=== PATIENT | female | born 1980 | race Caucasian/White ===

== ENCOUNTER 2022-07-31 02:23 | Inpatient (IN) | payer MEDICARE, MEDICAID, SELFPAY ==
[2022-07-31 02:48] VITALS: BP 153/82; PULSE 90; RESP 18; TEMP 36.7; O2SAT 95
--- NOTE | 2022-07-31 05:51 | PC.ADMIT ---
Pt is a 42 year old female admitted to the unit after referral from [facility] and transported from [facility] [place] [facility] [place]. Pt arrived on unit at 0230. Pt signed a CV. Pt current medical issues are HTN, asthma, GERD and is currently c/o BL pedal pain. Per ER records in [place], pt has possible low grade frostbite as well as possible microscopic glass in her feet. Pt has callouses on feet. Pt has an accompanying CD of pedal xrays in chart. Pt was brought in to [place] ER by police after being found in community. [facility] staff called crisis concerned as she was presenting as paranoid that others were stealing from her and wishing her harm. Pt very perseverative about foot pain. Pt has recent PTSD lost cousin by suicide in 2014 and her father committed suicide in 04/2022 and was found by pt. Pt reports using ETOH and Cocaine, utox + for cocaine. Pt presented as extremely labile and was unwilling to participate in admission process, wanting to go to sleep. No legals signed. Pt placed on 5 min checks upon arrival, 15 min checks after doctor review. Orders obtained by Dr. Felix. Pt reports feel safe in the hospital.
[2022-07-31 08:30] VITALS: BP 149/98; PULSE 96; RESP 18; TEMP 37; O2SAT 96
[2022-07-31] MEDS: LORazepam 1 MG TABLET 3 MG PO (08:49)
[2022-07-31] MEDS: Gabapentin 400 MG CAPSULE 800 MG PO ×3 (08:50→20:45)
[2022-07-31] MEDS: lisinopriL 20 MG TABLET PO (08:50)
[2022-07-31] MEDS: ARIPiprazole 2 MG TABLET PO (08:51)
[2022-07-31] MEDS: Nicotine 21 MG PATCH.TD24 TRANSDERMA (08:52)
[2022-07-31] MEDS: Nicotine Polacrilex 2 MG GUM 4 MG BUCCAL ×2 (09:09→18:40)
[2022-07-31 10:00] VITALS: RESP 18
[2022-07-31 11:10] VITALS: RESP 18
[2022-07-31 12:13] VITALS: BP 147/86; PULSE 97; RESP 18; TEMP 36.7; O2SAT 97
--- NOTE | 2022-07-31 12:17 | PC.NURSE ---
This morning at 0830 I assessed pt for s/s withdrawal. On entering the room she was noted to exhibit agitation, unable to sit still, moving lower extremities while vs were assessed. She reported severe anxiety and mild 3/10 headache. She appeared sensitive to light: squinting when asked to open her eyes. She was observed scratching at her skin and reported she is very itchy. She was disoriented to day/ date/ time believing it was 07/28/22. The tremor in her upper extremties was pronounced. She was hypertensive and tachycardic. CIWA score 20. Dr Felix and Juanita Armendariz infomred. Ativan 3mg given po per orders with effect.
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
[2022-07-31] MEDS: traMADoL HCL 50 MG TABLET 25 MG PO (15:45)
[2022-07-31 19:30] VITALS: BP 144/86; PULSE 100; RESP 16; TEMP 36.9; O2SAT 95
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
[2022-07-31] MEDS: cloNIDine HCL 0.2 MG TABLET PO (20:44)
[2022-07-31] MEDS: LORazepam 1 MG TABLET 2 MG PO (20:44)
[2022-07-31] MEDS: QUEtiapine Fumarate 100 MG TABLET PO (20:44)
[2022-07-31] MEDS: Atorvastatin Calcium 20 MG TABLET PO (20:45)
--- NOTE | 2022-08-01 00:41 | PC.NURSE ---
Pt signed a 3 day notice on 07/31/22, up on 08/05/2022.
[2022-08-01] MEDS: LORazepam 1 MG TABLET PO ×2 (00:53→14:23)
--- NOTE | 2022-08-01 03:43 | PC.NURSE ---
safety checks- orders for [address] by psychiatrist yesterday morning but has remained on 5 minute checks since that time. tonight is restless with disrupted sleep pattern, exhibiting sedation. when OOB is difficult to understand what she is saying, has been excessively eating and is spilling fluids on herself and floor. is oriented to person and is aware she is in the hospital.
[2022-08-01] MEDS: Omeprazole 40 MG CAPSULE.DR PO (05:52)
[2022-08-01 08:20] VITALS: BP 179/118; PULSE 94
[2022-08-01] MEDS: lisinopriL 20 MG TABLET PO (08:30)
[2022-08-01] MEDS: hydroCHLOROthiazide 12.5 MG TABLET PO (08:30)
[2022-08-01] MEDS: Gabapentin 400 MG CAPSULE 800 MG PO (08:30)
[2022-08-01] MEDS: ARIPiprazole 2 MG TABLET PO (08:30)
[2022-08-01] MEDS: lamoTRIgine 25 MG TABLET PO (08:30)
[2022-08-01] MEDS: Nicotine 21 MG PATCH.TD24 TRANSDERMA (08:31)
[2022-08-01] MEDS: LORazepam 1 MG TABLET 2 MG PO ×2 (08:40→18:49)
[2022-08-01] MEDS: traMADoL HCL 50 MG TABLET 25 MG PO ×2 (08:42→16:39)
[2022-08-01] MEDS: Nicotine Polacrilex 2 MG GUM 4 MG BUCCAL ×3 (08:50→17:07)
[2022-08-01 08:58] LABS: Estimated Average Glucose 100 mg/dL; Hemoglobin A1c % 5.1 %
[2022-08-01 09:06] LABS: Alanine Aminotransferase 24 U/L (0-31); Albumin Level 3.9 g/dL (3.5-5.0); Alkaline Phosphatase 98 U/L (39-117); Anion Gap 13 (12-20); Aspartate Amino Transferase 22 U/L (5-31); Bilirubin Direct < 0.2 mg/dL (0.0-0.5); Bilirubin Total 0.3 mg/dL (0.0-1.0); Blood Urea Nitrogen 14 mg/dL (9-16); Calcium 9.1 mg/dL (8.4-10.2); Carbon Dioxide 22 mmol/L (22-29); Chloride 110 mmol/L (96-108); Cholesterol 134 mg/dL; Estimated Glomerular Filt Rate > 60; Glucose Fasting 95 mg/dL (60-99); HDL Cholesterol 44 mg/dL; LDL Cholesterol Calculated 61 mg/dl; Potassium 4.4 mmol/L (3.3-5.1); Sodium 141 mmol/L (135-145); Total Protein 6.3 g/dL (6.5-8.0); Triglycerides 145 mg/dL
--- NOTE | 2022-08-01 09:08 | PC.NURSE ---
At 815 am pt was observed confused in the ladd looking for a bathroom. Her verbalizations were difficult to understand but she appeared confused. She was assisted back to her bathroom. After urinating and having a bm VS assessed 179/118 94. CIWA assessed: 16 - tremor, sweating, wincing at light, headache, Dr Felix informed and ativan 2mg given.
[2022-08-01 09:21] LABS: Thyroid Stimulating Hormone 0.91 uIU/mL (0.32-4.0)
[2022-08-01 09:34] LABS: Folate 9.3 ng/mL (> or = 4.0); Vitamin B12 215 pg/mL (200-900)
[2022-08-01 09:45] VITALS: BP 155/89; PULSE 96
[2022-08-01 11:10] VITALS: BP 177/103; PULSE 100; RESP 18; O2SAT 98
[2022-08-01] MEDS: Mineral Oil/Petrolatum,White 106 GM Tube 1 APPL TOPICAL (11:34)
[2022-08-01] MEDS: Fluticasone/Vilanterol 200/25 BLST.W.DEV 1 PUFF INHALE (11:34)
--- NOTE | 2022-08-01 12:57 | PC.NURSE ---
at 1109am BP 177/103 HR [address] Felix informed. No further orders given.
--- NOTE | 2022-08-01 13:46 | P.PNPSI_ITS ---
Subjective Subjective Date of Service: 08/01/22 Reason For Visit: Bipolar d/o, PTSD Interim History: pt up and about the unit this morning, appears a bit disoriented but much moire awake and engageable than yesterday. comes with MD to interview room. feels 3 mg ativan was too much yesterday, knocked her out. 2 mg seems to work better. states she has been drinking and using cocaine a lot. states she is not homeless but rather has an apartment. oriented to person, place, and time (other than saying it is the rather than the and that it is rather than Thursday). she is interested in getting back on her prior home medications regimen and discharging once her 3-day notice, which she submitted yesterday, matures. per staff, submitted 3-day notice yesterday. CIWA 20 yesterday, MAC, nausea, tremor. scoring 4, 7, 13, 8 at other points in the day and night yesterday. up a couple times overnight but appeared over-sedated to staff. slept much of the day yesterday. BP 179/118 this morning, agitated, tremulous, sweating. Mental Status Exam Mental Status Exam Narrative: adequately dressed, disheveled. cooperative, somewhat sluggish and sedated appearing. no PMA/PMR. speech nml rate, amount, loudness, latency. thoughts linear and logical, generally. affect blunted, hypo-intense, non-labile. mood down. denies SI. Diagnostics Vital Signs (24Hr): Vital Signs - 24 hr 07/31/22 19:30 08/01/22 08:20 08/01/22 09:45 Temperature 98.5 F Pulse Rate 100 94 96 Respiratory Rate 16 Blood Pressure 144/86 H 179/118 H 155/89 H Pulse Oximetry 95 Oxygen Delivery Method Room Air 08/01/22 11:10 Temperature Pulse Rate 100 Respiratory Rate 18 Blood Pressure 177/103 H Pulse Oximetry 98 Oxygen Delivery Method Room Air Labs 08/01/22 08:28 Labs: Laboratory Results - last 48 hr 08/01/22 08/01/22 08/01/22 08:28 08:28 08:28 Sodium 141 Potassium 4.4 Chloride 110 H Carbon Dioxide 22 Anion Gap 13 BUN 14 Creatinine 0.77 Estim Creat Clear Calc TNP Estimated GFR > 60 Fasting Glucose 95 Estimat Average Glucose 100 Hemoglobin A1c % 5.1 Calcium 9.1 Total Bilirubin 0.3 Direct Bilirubin < 0.2 AST 22 ALT 24 Alkaline Phosphatase 98 Total Protein 6.3 L Albumin 3.9 Triglycerides 145 Cholesterol 134 LDL Cholesterol, Calc 61 HDL Cholesterol 44 Vitamin B12 215 Folate 9.3 TSH 0.91 Medications Medications Current Medications Acetaminophen (Acetaminophen 325 Mg Tablet) 650 mg PO Q6H PRN PRN Reason: Headache/Pain Mild Scale (1-3) Al Hydroxide/Mg Hydroxide (Magnesium Hydrox/Alum Hydrox 30 Ml Oral.Susp) 30 ml PO Q6H PRN PRN Reason: Heartburn/Nausea Atorvastatin Calcium (Atorvastatin Calcium 20 Mg Tablet) 20 mg PO BEDTIME [facility] Last Admin: 07/31/22 20:45 Dose: 20 mg Clonidine HCl (Clonidine Hcl 0.2 Mg Tablet) 0.2 mg PO BEDTIME [facility] Last Admin: 07/31/22 20:44 Dose: 0.2 mg Fluticasone/Vilanterol (Fluticasone/Vilanterol 200/25 Blst.W.Dev) 1 puff INHALE RDAILY [facility] Last Admin: 08/01/22 11:34 Dose: 1 puff Gabapentin (Gabapentin 400 Mg Capsule) 400 mg PO TID [facility] Hydrochlorothiazide (Hydrochlorothiazide 12.5 Mg Tablet) 12.5 mg PO DAILY [facility] Last Admin: 08/01/22 08:30 Dose: 12.5 mg Hydroxyzine HCl (Hydroxyzine Hcl 25 Mg Tablet) 25 mg PO Q6H PRN PRN Reason: Anxiety Lisinopril (Lisinopril 20 Mg Tablet) 20 mg PO DAILY [facility]; Protocol Last Admin: 08/01/22 08:30 Dose: 20 mg Lorazepam (Lorazepam 1 Mg Tablet) 1 mg PO Q2H PRN PRN Reason: CIWA 8 - 11 Last Admin: 08/01/22 00:53 Dose: 1 mg Lorazepam (Lorazepam 1 Mg Tablet) 2 mg PO Q2H PRN PRN Reason: CIWA > 11 Magnesium Hydroxide (Milk Of Magnesia 30 Ml Oral.Susp) 30 ml PO DAILY PRN PRN Reason: Constipation Multi-Ingred Cream/Lotion/Oil/Oint (Mineral Oil/Petrolatum,White 106 Gm Tube) 1 appl TOPICAL BID [facility]; Protocol Last Admin: 08/01/22 11:34 Dose: 1 appl Nicotine (Nicotine 21 Mg Patch.Td24) 21 mg TRANSDERMA DAILY [facility] Last Admin: 08/01/22 08:31 Dose: 21 mg Nicotine Polacrilex (Nicotine Polacrilex 2 Mg Gum) 4 mg BUCCAL Q2H PRN PRN Reason: Nicotine Cravings Last Admin: 08/01/22 11:47 Dose: 4 mg Non-Formulary Medication (Ketorolac) 10 mg PO QID PRN PRN Reason: Pain Omeprazole (Omeprazole 40 Mg Capsule.Dr) 40 mg PO DAILY@0630 [facility] Last Admin: 08/01/22 05:52 Dose: 40 mg Quetiapine Fumarate (Quetiapine Fumarate 100 Mg Tablet) 100 mg PO BEDTIME [facility] Tramadol HCl (Tramadol Hcl 50 Mg Tablet) 25 mg PO Q4H PRN PRN Reason: severe pain Last Admin: 08/01/22 08:42 Dose: 25 mg Trazodone HCl (Trazodone Hcl 50 Mg Tablet) 50 mg PO BEDTIME PRN PRN Reason: Insomnia Allergies Allergies Allergy/AdvReac Type Severity Reaction Status Date / Time morphine Allergy Hives Verified 07/31/22 05:13 Assessment & Plan Assessment & Plan (1) Cocaine use disorder: Status: Acute Code(s): F14.10 - Cocaine abuse, uncomplicated (2) Alcohol use disorder: Status: Acute Code(s): F19.90 - Other psychoactive substance use, unspecified, uncomplicated (3) Depressive disorder, not elsewhere classified: Status: Acute Code(s): F32.89 - Other specified depressive episodes (4) PTSD (post-traumatic stress disorder): Status: Acute Code(s): F43.10 - Post-traumatic stress disorder, unspecified Plan 07/31: restart home medications. ativan per [facility] protocol for alcohol and/or benzo withdrawal. supportive care for cocaine withdrawal. 08/01: very hypertensive overnight and sedated/confused overnight. unclear if this is alcohol withdrawal delirium requiring more aggressive mgmt (ie, phenobarb protocol) versus restart of home meds to which she is not used, cocaine crash, and ativan. appearing slightly better today, BP responding to ativan. consulting medicine for opinion on phenobarb, will decrease some home med doses and continue ativan per CIWA protocol in the meantime. submitted 3- day notice, up next yvrose. Patient educated on: medication risk/benefits and substance abuse Reason for contiued inpatient stay Substantial Risk for: harm to self, inability to function and rapid decompensation Time Spent With Patient Time: Total time managing care of this patient today _25___ minutes.
[2022-08-01 14:15] VITALS: BP 144/89; PULSE 88; RESP 18; TEMP 36.7; O2SAT 96
[2022-08-01] MEDS: Gabapentin 400 MG CAPSULE PO ×2 (14:22→21:49)
[2022-08-01 18:00] VITALS: BP 186/96; PULSE 94; RESP 20; TEMP 36.8; O2SAT 98
[2022-08-01] MEDS: QUEtiapine Fumarate 50 MG TABLET PO (18:31)
[2022-08-01] MEDS: hydrOXYzine HCL 25 MG TABLET PO (21:49)
[2022-08-01] MEDS: Atorvastatin Calcium 20 MG TABLET PO (21:49)
[2022-08-01] MEDS: cloNIDine HCL 0.2 MG TABLET PO (21:49)
[2022-08-01] MEDS: QUEtiapine Fumarate 100 MG TABLET PO (21:49)
[2022-08-01 21:56] VITALS: BP 121/64; PULSE 94; TEMP 36.3; O2SAT 94
[2022-08-02 00:47] VITALS: BP 162/94; PULSE 103; O2SAT 97
[2022-08-02] MEDS: Nicotine Polacrilex 2 MG GUM 4 MG BUCCAL ×6 (00:52→21:37)
[2022-08-02] MEDS: LORazepam 1 MG TABLET PO ×5 (00:52→21:36)
--- NOTE | 2022-08-02 00:54 | PC.NURSE ---
CIWA-7. given ativan 1 mg as patient is diaphoretic, BP 162/94, 103. increase in agitation noted . HX of w/d seizures.
[2022-08-02] MEDS: Omeprazole 40 MG CAPSULE.DR PO (06:15)
[2022-08-02 06:20] VITALS: BP 156/98; PULSE 95
[2022-08-02] MEDS: Mineral Oil/Petrolatum,White 106 GM Tube 1 APPL TOPICAL ×2 (06:35→19:17)
[2022-08-02 09:00] VITALS: BP 158/102; PULSE 93; RESP 16; TEMP 36.7; O2SAT 97
[2022-08-02] MEDS: Gabapentin 400 MG CAPSULE PO ×3 (09:09→19:15)
[2022-08-02] MEDS: lisinopriL 20 MG TABLET PO (09:10)
[2022-08-02] MEDS: Fluticasone/Vilanterol 200/25 BLST.W.DEV 1 PUFF INHALE (09:44)
[2022-08-02] MEDS: Nicotine 21 MG PATCH.TD24 TRANSDERMA (10:51)
[2022-08-02] MEDS: traMADoL HCL 50 MG TABLET 25 MG PO (11:20)
[2022-08-02] MEDS: Magnesium Hydrox/Alum Hydrox 30 ML ORAL.SUSP PO (11:22)
--- NOTE | 2022-08-02 11:49 | P.PNPSI_ITS ---
Subjective Subjective Date of Service: 08/02/22 Reason For Visit: Bipolar d/o, PTSD Subjective Notes: Conditional Voluntary and 3 Day Interim History: The nursing staff reported the patient had been on CIWA protocol still scoring 12 at 19:00. Today she was angry and irritable demanding her Ativan and lotion for his frostbite. She was very lab violent angry. Apparently she was cooperative with the previous team. On interview no changes in her medications she stated that she is going to leave and Thursday. Mental Status Exam Mental Status Exam Patient Appearance: Appropriate Patient Orientation: Person, Place and Situation Level of Consciousness: Awake, Appropriate and Restless Patient Behavior: Aggressive, Restless and Belligerent Mood Description: Hostile and Expansive Affect Description: Labile Patient Cognition Impaired: No Ability to Follow Directions: Fair Speech Pattern: Perseverating Hallucinations: None Delusions: Not Present Thought Process: Racing and Distracted Thought Content: positive for [place], positive for Circumstantial and positive for Perseveration Judgement: Poor Diagnostics Vital Signs (24Hr): Vital Signs - 24 hr 08/01/22 18:00 08/01/22 14:15 08/01/22 21:56 Temperature 98.2 F 98.1 F 97.4 F Pulse Rate 94 88 94 Respiratory Rate 20 18 Blood Pressure 186/96 H 144/89 H 121/64 Pulse Oximetry 98 96 94 Oxygen Delivery Method Room Air Room Air Room Air 08/02/22 00:47 08/02/22 06:20 08/02/22 09:00 Temperature 98.1 F Pulse Rate 103 H 95 93 Respiratory Rate 16 Blood Pressure 162/94 H 156/98 H 158/102 H Pulse Oximetry 97 97 Oxygen Delivery Method Room Air Room Air Labs 08/01/22 08:28 Labs: Laboratory Results - last 48 hr 08/01/22 08/01/22 08/01/22 08:28 08:28 08:28 Sodium 141 Potassium 4.4 Chloride 110 H Carbon Dioxide 22 Anion Gap 13 BUN 14 Creatinine 0.77 Estim Creat Clear Calc TNP Estimated GFR > 60 Fasting Glucose 95 Estimat Average Glucose 100 Hemoglobin A1c % 5.1 Calcium 9.1 Total Bilirubin 0.3 Direct Bilirubin < 0.2 AST 22 ALT 24 Alkaline Phosphatase 98 Total Protein 6.3 L Albumin 3.9 Triglycerides 145 Cholesterol 134 LDL Cholesterol, Calc 61 HDL Cholesterol 44 Vitamin B12 215 Folate 9.3 TSH 0.91 Medications Medications Current Medications Acetaminophen (Acetaminophen 325 Mg Tablet) 650 mg PO Q6H PRN PRN Reason: Headache/Pain Mild Scale (1-3) Al Hydroxide/Mg Hydroxide (Magnesium Hydrox/Alum Hydrox 30 Ml Oral.Susp) 30 ml PO Q6H PRN PRN Reason: Heartburn/Nausea Last Admin: 08/02/22 11:22 Dose: 30 ml Atorvastatin Calcium (Atorvastatin Calcium 20 Mg Tablet) 20 mg PO BEDTIME [facility] Last Admin: 08/01/22 21:49 Dose: 20 mg Clonidine HCl (Clonidine Hcl 0.2 Mg Tablet) 0.2 mg PO BEDTIME [facility] Last Admin: 08/01/22 21:49 Dose: 0.2 mg Fluticasone/Vilanterol (Fluticasone/Vilanterol 200/25 Blst.W.Dev) 1 puff INHALE RDAILY [facility] Last Admin: 08/02/22 09:44 Dose: 1 puff Gabapentin (Gabapentin 400 Mg Capsule) 400 mg PO TID [facility] Last Admin: 08/02/22 09:09 Dose: 400 mg Hydrochlorothiazide (Hydrochlorothiazide 12.5 Mg Tablet) 12.5 mg PO DAILY [facility] Last Admin: 08/02/22 09:09 Dose: Not Given Hydroxyzine HCl (Hydroxyzine Hcl 25 Mg Tablet) 25 mg PO Q6H PRN PRN Reason: Anxiety Last Admin: 08/01/22 21:49 Dose: 25 mg Lisinopril (Lisinopril 20 Mg Tablet) 20 mg PO DAILY [facility]; Protocol Last Admin: 08/02/22 09:10 Dose: 20 mg Lorazepam (Lorazepam 1 Mg Tablet) 1 mg PO Q2H PRN PRN Reason: CIWA 8 - 11 Last Admin: 08/02/22 11:45 Dose: 1 mg Lorazepam (Lorazepam 1 Mg Tablet) 2 mg PO Q2H PRN PRN Reason: CIWA > 11 Last Admin: 08/01/22 18:49 Dose: 2 mg Magnesium Hydroxide (Milk Of Magnesia 30 Ml Oral.Susp) 30 ml PO DAILY PRN PRN Reason: Constipation Multi-Ingred Cream/Lotion/Oil/Oint (Mineral Oil/Petrolatum,White 106 Gm Tube) 1 appl TOPICAL BID [facility]; Protocol Last Admin: 08/02/22 06:35 Dose: 1 appl Nicotine (Nicotine 21 Mg Patch.Td24) 21 mg TRANSDERMA DAILY [facility] Last Admin: 08/02/22 10:51 Dose: 21 mg Nicotine Polacrilex (Nicotine Polacrilex 2 Mg Gum) 4 mg BUCCAL Q2H PRN PRN Reason: Nicotine Cravings Last Admin: 08/02/22 11:22 Dose: 4 mg Non-Formulary Medication (Ketorolac) 10 mg PO QID PRN PRN Reason: Pain Omeprazole (Omeprazole 40 Mg Capsule.Dr) 40 mg PO DAILY@0630 [facility] Last Admin: 08/02/22 06:15 Dose: 40 mg Quetiapine Fumarate (Quetiapine Fumarate 100 Mg Tablet) 100 mg PO BEDTIME [facility] Last Admin: 08/01/22 21:49 Dose: 100 mg Quetiapine Fumarate (Quetiapine Fumarate 50 Mg Tablet) 50 mg PO Q4H PRN PRN Reason: agitation Last Admin: 08/01/22 18:31 Dose: 50 mg Tramadol HCl (Tramadol Hcl 50 Mg Tablet) 25 mg PO Q4H PRN PRN Reason: severe pain Last Admin: 08/02/22 11:20 Dose: 25 mg Trazodone HCl (Trazodone Hcl 50 Mg Tablet) 50 mg PO BEDTIME PRN PRN Reason: Insomnia Allergies Allergies Allergy/AdvReac Type Severity Reaction Status Date / Time morphine Allergy Hives Verified 07/31/22 05:13 Assessment & Plan Assessment & Plan (1) Cocaine use disorder: Status: Acute Code(s): F14.10 - Cocaine abuse, uncomplicated (2) Alcohol use disorder: Status: Acute Code(s): F19.90 - Other psychoactive substance use, unspecified, uncomplicated (3) Depressive disorder, not elsewhere classified: Status: Acute Code(s): F32.89 - Other specified depressive episodes (4) PTSD (post-traumatic stress disorder): Status: Acute Code(s): F43.10 - Post-traumatic stress disorder, unspecified Plan 07/31: restart home medications. ativan per CIWA protocol for alcohol and/or benzo withdrawal. supportive care for cocaine withdrawal. 08/01: very hypertensive overnight and sedated/confused overnight. unclear if this is alcohol withdrawal delirium requiring more aggressive mgmt (ie, phenobarb protocol) versus restart of home meds to which she is not used, cocaine crash, and ativan. appearing slightly better today, BP responding to ativan. consulting medicine for opinion on phenobarb, will decrease some home med doses and continue ativan per CIWA protocol in the meantime. submitted 3- day notice, up next thursday. 08/02 continue on CIWA, will increase Seroquel at hs up to 300 mg for sleep. Reason for contiued inpatient stay Substantial Risk for: inability to function, rapid decompensation and med/psych decompensation Time Spent With Patient Time: Total time managing care of this patient today __20__ minutes.
[2022-08-02 12:05] VITALS: BP 115/80; PULSE 117
[2022-08-02] MEDS: hydrOXYzine HCL 25 MG TABLET PO (14:19)
[2022-08-02] MEDS: QUEtiapine Fumarate 50 MG TABLET PO (17:57)
[2022-08-02 19:10] VITALS: BP 162/97; PULSE 100; RESP 16; TEMP 36.6; O2SAT 98
[2022-08-02] MEDS: QUEtiapine Fumarate 300 MG TABLET PO (19:15)
[2022-08-02] MEDS: cloNIDine HCL 0.2 MG TABLET PO (19:15)
[2022-08-02] MEDS: Atorvastatin Calcium 20 MG TABLET PO (19:21)
[2022-08-02 21:30] VITALS: BP 140/94; PULSE 100
[2022-08-03] MEDS: hydrOXYzine HCL 25 MG TABLET PO ×2 (00:55→10:39)
[2022-08-03] MEDS: QUEtiapine Fumarate 50 MG TABLET PO ×3 (00:55→17:55)
[2022-08-03] MEDS: Nicotine Polacrilex 2 MG GUM 4 MG BUCCAL ×6 (03:25→20:15)
[2022-08-03 05:50] VITALS: BP 149/93; PULSE 100
[2022-08-03] MEDS: Omeprazole 40 MG CAPSULE.DR PO (05:54)
[2022-08-03] MEDS: Acetaminophen 325 MG TABLET 650 MG PO (05:54)
[2022-08-03] MEDS: LORazepam 1 MG TABLET PO (05:55)
[2022-08-03 09:28] VITALS: BP 142/78; PULSE 99; RESP 16; TEMP 36.8; O2SAT 97
[2022-08-03] MEDS: lisinopriL 20 MG TABLET PO (09:32)
[2022-08-03] MEDS: Nicotine 21 MG PATCH.TD24 TRANSDERMA ×2 (09:32→11:51)
[2022-08-03] MEDS: Gabapentin 400 MG CAPSULE PO ×3 (09:32→20:15)
[2022-08-03] MEDS: Fluticasone/Vilanterol 200/25 BLST.W.DEV 1 PUFF INHALE (10:39)
[2022-08-03] MEDS: Mineral Oil/Petrolatum,White 106 GM Tube 1 APPL TOPICAL (10:40)
--- NOTE | 2022-08-03 11:15 | P.PNPSI_ITS ---
Subjective Subjective Date of Service: 08/03/22 Reason For Visit: Bipolar d/o, PTSD Subjective Notes: Conditional Voluntary and 3 Day Interim History: The nursing staff reported the patient has not complained of auditory hallucinations she feels safe in the unit. She seeking out her Ativan frequently. According to the nursing staff her CIWA was still scoring. She slept only from 20:00 to 02:00 o'clock in the morning she was having broken sleep. Even though his CIWA ease tapering down. On interview the patient reports that she had been very anxious and she requested [employer] Able to contract for safety in the facility. Mental Status Exam Mental Status Exam Patient Appearance: Appropriate Patient Orientation: Person, Place and Situation Level of Consciousness: Restless Patient Behavior: Guarded and Restless Mood Description: Anxious Affect Description: Labile Patient Cognition Impaired: No Ability to Follow Directions: Good Speech Pattern: Clear Hallucinations: None Delusions: Not Present Thought Process: Racing and Distracted Thought Content: positive for [place] and positive for Circumstantial Judgement: Fair Diagnostics Vital Signs (24Hr): Vital Signs - 24 hr 08/02/22 12:05 08/02/22 19:10 08/02/22 21:30 Temperature 97.8 F Pulse Rate 117 H 100 100 Respiratory Rate 16 Blood Pressure 115/80 162/97 H 140/94 H Pulse Oximetry 98 Oxygen Delivery Method Room Air 08/03/22 05:50 08/03/22 09:28 Temperature 98.3 F Pulse Rate 100 99 Respiratory Rate 16 Blood Pressure 149/93 H 142/78 H Pulse Oximetry 97 Oxygen Delivery Method Room Air Labs 08/01/22 08:28 Medications Medications Current Medications Acetaminophen (Acetaminophen 325 Mg Tablet) 650 mg PO Q6H PRN PRN Reason: Headache/Pain Mild Scale (1-3) Last Admin: 08/03/22 05:54 Dose: 650 mg Al Hydroxide/Mg Hydroxide (Magnesium Hydrox/Alum Hydrox 30 Ml Oral.Susp) 30 ml PO Q6H PRN PRN Reason: Heartburn/Nausea Last Admin: 08/02/22 11:22 Dose: 30 ml Atorvastatin Calcium (Atorvastatin Calcium 20 Mg Tablet) 20 mg PO BEDTIME [facility] Last Admin: 08/02/22 19:21 Dose: 20 mg Clonidine HCl (Clonidine Hcl 0.2 Mg Tablet) 0.2 mg PO BEDTIME [facility] Last Admin: 08/02/22 19:15 Dose: 0.2 mg Fluticasone/Vilanterol (Fluticasone/Vilanterol 200/25 Blst.W.Dev) 1 puff INHALE RDAILY [facility] Last Admin: 08/03/22 10:39 Dose: 1 puff Gabapentin (Gabapentin 400 Mg Capsule) 400 mg PO TID [facility] Last Admin: 08/03/22 09:32 Dose: 400 mg Hydrochlorothiazide (Hydrochlorothiazide 12.5 Mg Tablet) 12.5 mg PO DAILY [facility] Last Admin: 08/03/22 10:13 Dose: Not Given Hydroxyzine HCl (Hydroxyzine Hcl 25 Mg Tablet) 25 mg PO Q6H PRN PRN Reason: Anxiety Last Admin: 08/03/22 10:39 Dose: 25 mg Lisinopril (Lisinopril 20 Mg Tablet) 20 mg PO DAILY [facility]; Protocol Last Admin: 08/03/22 09:32 Dose: 20 mg Lorazepam (Lorazepam 1 Mg Tablet) 1 mg PO Q2H PRN PRN Reason: CIWA 8 - 11 Last Admin: 08/03/22 05:55 Dose: 1 mg Lorazepam (Lorazepam 1 Mg Tablet) 2 mg PO Q2H PRN PRN Reason: CIWA > 11 Last Admin: 08/01/22 18:49 Dose: 2 mg Magnesium Hydroxide (Milk Of Magnesia 30 Ml Oral.Susp) 30 ml PO DAILY PRN PRN Reason: Constipation Multi-Ingred Cream/Lotion/Oil/Oint (Mineral Oil/Petrolatum,White 106 Gm Tube) 1 appl TOPICAL BID [facility]; Protocol Last Admin: 08/03/22 10:40 Dose: 1 appl Nicotine (Nicotine 21 Mg Patch.Td24) 21 mg TRANSDERMA DAILY [facility] Last Admin: 08/03/22 09:32 Dose: 21 mg Nicotine Polacrilex (Nicotine Polacrilex 2 Mg Gum) 4 mg BUCCAL Q2H PRN PRN Reason: Nicotine Cravings Last Admin: 08/03/22 09:32 Dose: 4 mg Non-Formulary Medication (Ketorolac) 10 mg PO QID PRN PRN Reason: Pain Omeprazole (Omeprazole 40 Mg Capsule.Dr) 40 mg PO DAILY@0630 [facility] Last Admin: 08/03/22 05:54 Dose: 40 mg Quetiapine Fumarate (Quetiapine Fumarate 50 Mg Tablet) 50 mg PO Q4H PRN PRN Reason: agitation Last Admin: 08/03/22 10:39 Dose: 50 mg Quetiapine Fumarate (Quetiapine Fumarate 300 Mg Tablet) 300 mg PO BEDTIME [facility] Last Admin: 08/02/22 19:15 Dose: 300 mg Tramadol HCl (Tramadol Hcl 50 Mg Tablet) 25 mg PO Q4H PRN PRN Reason: severe pain Last Admin: 08/02/22 11:20 Dose: 25 mg Trazodone HCl (Trazodone Hcl 50 Mg Tablet) 50 mg PO BEDTIME PRN PRN Reason: Insomnia Allergies Allergies Allergy/AdvReac Type Severity Reaction Status Date / Time morphine Allergy Hives Verified 07/31/22 05:13 Assessment & Plan Assessment & Plan (1) Cocaine use disorder: Status: Acute Code(s): F14.10 - Cocaine abuse, uncomplicated (2) Alcohol use disorder: Status: Acute Code(s): F19.90 - Other psychoactive substance use, unspecified, uncomplicated (3) Depressive disorder, not elsewhere classified: Status: Acute Code(s): F32.89 - Other specified depressive episodes (4) PTSD (post-traumatic stress disorder): Status: Acute Code(s): F43.10 - Post-traumatic stress disorder, unspecified Plan 07/31: restart home medications. ativan per CIWA protocol for alcohol and/or benzo withdrawal. supportive care for cocaine withdrawal. 08/01: very hypertensive overnight and sedated/confused overnight. unclear if this is alcohol withdrawal delirium requiring more aggressive mgmt (ie, phenobarb protocol) versus restart of home meds to which she is not used, c ocaine crash, and ativan. appearing slightly better today, BP responding to ativan. consulting medicine for opinion on phenobarb, will decrease some home med doses and continue ativan per CIWA protocol in the meantime. submitted 3- day notice, up next thursday. 08/02 continue on CIWA, will increase Seroquel at hs up to 300 mg for sleep. 08/03 start Buspar 10 mg po tid, rest the same Reason for contiued inpatient stay Substantial Risk for: inability to function, rapid decompensation and med/psych decompensation Time Spent With Patient Time: Total time managing care of this patient today __20__ minutes.
[2022-08-03] MEDS: traMADoL HCL 50 MG TABLET 25 MG PO (13:21)
[2022-08-03 14:20] VITALS: BP 144/70; PULSE 107; RESP 16; TEMP 36.4; O2SAT 100
[2022-08-03] MEDS: busPIRone HCl 10 MG TABLET PO ×2 (14:24→20:15)
[2022-08-03 20:00] VITALS: BP 136/62; PULSE 91; RESP 16; O2SAT 97
[2022-08-03] MEDS: Atorvastatin Calcium 20 MG TABLET PO (20:15)
[2022-08-03] MEDS: QUEtiapine Fumarate 300 MG TABLET PO (20:15)
[2022-08-03] MEDS: cloNIDine HCL 0.2 MG TABLET PO (20:15)
[2022-08-04] MEDS: Omeprazole 40 MG CAPSULE.DR PO (07:03)
[2022-08-04] MEDS: Nicotine Polacrilex 2 MG GUM 4 MG BUCCAL ×6 (07:04→23:28)
[2022-08-04] MEDS: Gabapentin 400 MG CAPSULE PO (09:09)
[2022-08-04] MEDS: lisinopriL 20 MG TABLET PO (09:10)
[2022-08-04] MEDS: busPIRone HCl 10 MG TABLET PO ×3 (09:10→20:03)
[2022-08-04] MEDS: QUEtiapine Fumarate 50 MG TABLET PO ×3 (09:18→23:27)
[2022-08-04 09:35] VITALS: BP 136/82; PULSE 101; RESP 16; TEMP 36.9; O2SAT 97
[2022-08-04] MEDS: Fluticasone/Vilanterol 200/25 BLST.W.DEV 1 PUFF INHALE (09:50)
[2022-08-04] MEDS: Mineral Oil/Petrolatum,White 106 GM Tube 1 APPL TOPICAL (10:00)
[2022-08-04] MEDS: hydrOXYzine HCL 25 MG TABLET PO ×2 (12:03→23:27)
--- NOTE | 2022-08-04 12:09 | HO.PSYCHPN ---
Subjective Subjective Date of Service: 08/04/22 Reason For Visit: Bipolar d/o, PTSD Interim History: calm, cooperative. hyperverbal, loose. future-oriented, talking about aftercare arrangements and housing options (she reports she has three). per staff, 3-day up tomorrow. variable mood. anxious, depressed, labile. eating, visible, social. safe. appeared sedated, nodding off yesterday. 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 Mental Status Exam Mental Status Exam Narrative: adequately dressed, disheveled. cooperative, loos, hyperverbal. no PMA/PMR. speech incr rate, amount. nml loudness, decr latency. thoughts tangential. affect full range, normo-intense, non-labile. denies SI. Diagnostics Vital Signs (24Hr): Vital Signs - 24 hr 08/03/22 14:20 08/03/22 20:00 08/04/22 09:35 Temperature 97.5 F 98.5 F Pulse Rate 107 H 91 101 H Respiratory Rate 16 16 16 Blood Pressure 144/70 H 136/62 136/82 Pulse Oximetry 100 97 97 Oxygen Delivery Method Room Air Room Air Room Air Labs 08/01/22 08:28 Medications Medications Current Medications Acetaminophen (Acetaminophen 325 Mg Tablet) 650 mg PO Q6H PRN PRN Reason: Headache/Pain Mild Scale (1-3) Last Admin: 08/03/22 05:54 Dose: 650 mg Al Hydroxide/Mg Hydroxide (Magnesium Hydrox/Alum Hydrox 30 Ml Oral.Susp) 30 ml PO Q6H PRN PRN Reason: Heartburn/Nausea Last Admin: 08/02/22 11:22 Dose: 30 ml Atorvastatin Calcium (Atorvastatin Calcium 20 Mg Tablet) 20 mg PO BEDTIME [facility] Last Admin: 08/03/22 20:15 Dose: 20 mg Buspirone HCl (Buspirone Hcl 10 Mg Tablet) 10 mg PO TID [facility] Last Admin: 08/04/22 09:10 Dose: 10 mg Clonidine HCl (Clonidine Hcl 0.2 Mg Tablet) 0.2 mg PO BEDTIME [facility] Last Admin: 08/03/22 20:15 Dose: 0.2 mg Fluticasone/Vilanterol (Fluticasone/Vilanterol 200/25 Blst.W.Dev) 1 puff INHALE RDAILY [facility] Last Admin: 08/04/22 09:50 Dose: 1 puff Gabapentin (Gabapentin 300 Mg Capsule) 600 mg PO TID [facility] Hydrochlorothiazide (Hydrochlorothiazide 12.5 Mg Tablet) 12.5 mg PO DAILY [facility] Last Admin: 08/04/22 09:14 Dose: Not Given Hydroxyzine HCl (Hydroxyzine Hcl 25 Mg Tablet) 25 mg PO Q6H PRN PRN Reason: Anxiety Last Admin: 08/04/22 12:03 Dose: 25 mg Lisinopril (Lisinopril 20 Mg Tablet) 20 mg PO DAILY [facility]; Protocol Last Admin: 08/04/22 09:10 Dose: 20 mg Magnesium Hydroxide (Milk Of Magnesia 30 Ml Oral.Susp) 30 ml PO DAILY PRN PRN Reason: Constipation Multi-Ingred Cream/Lotion/Oil/Oint (Mineral Oil/Petrolatum,White 106 Gm Tube) 1 appl TOPICAL BID [facility]; Protocol Last Admin: 08/04/22 10:00 Dose: 1 appl Nicotine (Nicotine 21 Mg Patch.Td24) 21 mg TRANSDERMA DAILY [facility] Last Admin: 08/04/22 09:14 Dose: Not Given Nicotine Polacrilex (Nicotine Polacrilex 2 Mg Gum) 4 mg BUCCAL Q1H PRN PRN Reason: Nicotine Cravings Omeprazole (Omeprazole 40 Mg Capsule.Dr) 40 mg PO DAILY@0630 [facility] Last Admin: 08/04/22 07:03 Dose: 40 mg Quetiapine Fumarate (Quetiapine Fumarate 50 Mg Tablet) 50 mg PO Q4H PRN PRN Reason: agitation Last Admin: 08/04/22 09:18 Dose: 50 mg Quetiapine Fumarate (Quetiapine Fumarate 300 Mg Tablet) 300 mg PO BEDTIME [facility] Last Admin: 08/03/22 20:15 Dose: 300 mg Trazodone HCl (Trazodone Hcl 50 Mg Tablet) 50 mg PO BEDTIME PRN PRN Reason: Insomnia Allergies Allergies Allergy/AdvReac Type Severity Reaction Status Date / Time morphine Allergy Hives Verified 07/31/22 05:13 Assessment & Plan Assessment & Plan (1) Cocaine use disorder: Status: Acute Code(s): F14.10 - Cocaine abuse, uncomplicated (2) Alcohol use disorder: Status: Acute Code(s): F19.90 - Other psychoactive substance use, unspecified, uncomplicated (3) Depressive disorder, not elsewhere classified: Status: Acute Code(s): F32.89 - Other specified depressive episodes (4) PTSD (post-traumatic stress disorder): Status: Acute Code(s): F43.10 - Post-traumatic stress disorder, unspecified Plan 07/31: restart home medications. ativan per CIWA protocol for alcohol and/or benzo withdrawal. supportive care for cocaine withdrawal. 08/01: very hypertensive overnight and sedated/confused overnight. unclear if this is alcohol withdrawal delirium requiring more aggressive mgmt (ie, phenobarb protocol) versus restart of home meds to which she is not used, cocaine crash, and ativan. appearing slightly better today, BP responding to ativan. consulting medicine for opinion on phenobarb, will decrease some home med doses and continue ativan per CIWA protocol in the meantime. submitted 3-day notice, up next thursday. 08/02 continue on CIWA, will increase Seroquel at hs up to 300 mg for sleep. 08/03 start Buspar 10 mg po tid, rest the same 08/04: increase gabapentin to 600 TID, moving back toward prior outpt regimen. otherwise continue previous plan. discharge home tomorrow at maturation of 3-day notice. Reason for contiued inpatient stay Substantial Risk for: rapid decompensation Time Spent With Patient Time: Total time managing care of this patient today __25__ minutes.
[2022-08-04] MEDS: Nicotine 21 MG PATCH.TD24 TRANSDERMA (13:27)
[2022-08-04] MEDS: Gabapentin 300 MG CAPSULE 600 MG PO ×2 (14:49→20:02)
[2022-08-04 19:45] VITALS: BP 138/91; PULSE 107; RESP 16; TEMP 36.8; O2SAT 97
[2022-08-04] MEDS: cloNIDine HCL 0.2 MG TABLET PO (21:13)
[2022-08-04] MEDS: Atorvastatin Calcium 20 MG TABLET PO (21:13)
[2022-08-04] MEDS: QUEtiapine Fumarate 300 MG TABLET PO (21:13)
[2022-08-04] MEDS: Acetaminophen 325 MG TABLET 650 MG PO (21:13)
[2022-08-05] MEDS: Nicotine Polacrilex 2 MG GUM 4 MG BUCCAL ×4 (00:45→08:48)
[2022-08-05] MEDS: QUEtiapine Fumarate 50 MG TABLET PO (03:51)
[2022-08-05] MEDS: Milk of Magnesia 30 ML ORAL.SUSP PO (05:47)
[2022-08-05] MEDS: Omeprazole 40 MG CAPSULE.DR PO (05:47)
[2022-08-05 08:15] VITALS: BP 149/96; PULSE 90; RESP 18; O2SAT 100
[2022-08-05] MEDS: Gabapentin 300 MG CAPSULE 600 MG PO (08:35)
[2022-08-05] MEDS: Nicotine 21 MG PATCH.TD24 TRANSDERMA (08:42)
[2022-08-05] MEDS: busPIRone HCl 10 MG TABLET PO (08:42)
[2022-08-05] MEDS: lisinopriL 20 MG TABLET PO (08:42)
[2022-08-05] MEDS: hydroCHLOROthiazide 12.5 MG TABLET PO (08:42)
[2022-08-05] MEDS: Mineral Oil/Petrolatum,White 106 GM Tube 1 APPL TOPICAL (08:48)
[2022-08-05] MEDS: Fluticasone/Vilanterol 200/25 BLST.W.DEV 1 PUFF INHALE (08:48)
[2022-08-05] MEDS: Acetaminophen 325 MG TABLET 650 MG PO (09:37)
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
== END 2022-08-05 10:58 | disposition home or self-care (01) | DRG 881 ==
PROVIDERS: Admitting Provider Psychiatry & Neurology Psychiatry; Visit Provider Psychiatry & Neurology Psychiatry
DX: F32.A Depression, unspecified (principal); R45.851 Suicidal ideations; F10.10 Alcohol abuse, uncomplicated; E78.5 Hyperlipidemia, unspecified; I10 Essential (primary) hypertension; F14.10 Cocaine abuse, uncomplicated; F43.10 Post-traumatic stress disorder, unspecified; Z56.0 Unemployment, unspecified; Z87.891 Personal history of nicotine dependence; Z79.899 Other long term (current) drug therapy
CPT/HCPCS: 36415; 80053; 80061; 80076; 82607; 82746; 83036; 84443